=== PATIENT | female | born 1990 | race Caucasian/White ===

== ENCOUNTER 2016-09-19 16:43 | Emergency (ER) | payer OTHER ==
[~2016-09-19] VITALS: Ht 175.3 cm; Wt 59.0 kg
[2016-09-19 16:43] VITALS: BP_SYST 123
--- NOTE | 2016-09-19 16:50 | NUR ---
Pt to bed 4
[2016-09-19] MEDS ORDERED: METHOTREXATE IM ONE (17:00)
--- NOTE | 2016-09-19 17:00 | NUR ---
MD examining patient at bedside.Recieved new orders.
--- NOTE | 2016-09-19 17:10 | NUR ---
Patient BIB boyfriend, she is awake and alert x 4,cooperative with chief complaint of vaginal bleed since 08/2016. Patient states she has an ectopic . Patient denies pain and distress at this time.
[2016-09-19 17:28] LABS: BILIRUBIN,URINE NEGATIVE (NEGATIVE); BLOOD, URINE 2+ (NEGATIVE); CLARITY/URINE CLEAR (CLEAR); COLOR,URINE YELLOW (YELLOW); GLUCOSE,URINE NEGATIVE (NEGATIVE); KETONES,URINE NEGATIVE (NEGATIVE); LEUKOCYTE ESTERASE ,URINE NEGATIVE (NEGATIVE); NITRITE, URINE NEGATIVE (NEGATIVE); PROTEIN URINE NEGATIVE (NEGATIVE); UROBILINOGEN,URINE 0.2 (0.2-1.0)
[2016-09-19 17:33] LABS: BASOPHILS % (AUTO) 0.2 % (0.0-2.0); EOSINOPHILS # (AUTO) 0.1 K/uL (0.0-0.4); EOSINOPHILS % (AUTO) 1.7 % (0.0-4.0); HEMATOCRIT 38.8 % (36-48); HEMOGLOBIN 13.2 g/dL (12.0-16.0); LYMPHOCYTES # (AUTO) 1.5 K/uL (1.0-5.5); LYMPHOCYTES % (AUTO) 26.6 % (20.5-51.5); MEAN CORPUSCULAR HEMOGLOBIN 30 pg (27-31); MEAN CORPUSCULAR HGB CONC 34 % (32-36); MEAN CORPUSCULAR VOLUME 87 fL (79.0-98.0); MONOCYTES # (AUTO) 0.4 K/uL (0.0-1.0); MONOCYTES % (AUTO) 7.9 % (1.7-9.3); NEUTROPHILS # (AUTO) 3.5 K/uL (1.8-7.7); NEUTROPHILS % (AUTO) 63.6 % (40.0-70.0); PLATELET COUNT (AUTO) 252 K/uL (130-430); RED BLOOD CELL COUNT(AUTO) 4.48 MIL/uL (4.2-6.2); RED CELL DISTRIBUTION WIDTH 11.3 % (9.0-15.0); WHITE BLOOD COUNT (AUTO) 5.5 K/uL (4.8-10.8)
--- NOTE | 2016-09-19 17:35 | NUR ---
Pt medicated as ordered. Pt tolerated well.
[2016-09-19 17:39] LABS: CALCIUM 9.5 mg/dL (8.4-11.0); CREATININE 0.89 mg/dL (0.55-1.30); POTASSIUM 4.2 mmol/L (3.5-5.1)
[2016-09-19 17:46] LABS: PROTHROMBIN TIME 10.9 SECS (9.5-12.5)
[2016-09-19 18:06] LABS: ALBUMIN 4.5 g/dL (3.4-4.8); TOTAL BILIRUBIN 0.6 mg/dL (0.0-1.0); TOTAL PROTEIN, SERUM 7.6 g/dL (6.4-8.3)
[2016-09-19 18:07] LABS: BACTERIA,URINE FEW /HPF (None Seen); MUCUS,URINE 1+ /LPF (None Seen); WBC,URINE 0-3 /HPF (0-3)
--- NOTE | 2016-09-19 19:26 | NUR ---
Transfer of care Report given to BLAKE Burt. Endorsed plan of care to night nurse, BLAKE Burt.
[2016-09-19 19:30] VITALS: BP_SYST 120
--- NOTE | 2016-09-19 19:30 | NUR ---
Patient given written and verbal discharge instructions and verbalizes understanding. ER MD discussed with patient the results and treatment provided. Given copies of tests performed in ER. Patient in stable condition. ID arm band removed. No Rx of given. Patient educated on pain management and to follow up with PMD. Pain Scale 0/10. Opportunity for questions provided and answered.
== END 2016-09-19 19:30 | disposition home or self-care (01) ==
LOC: SED 16:43
DX: O00.90 Unspecified ectopic pregnancy without intrauterine pregnancy (principal)
CPT/HCPCS: 36415; 80053; 81000; 84702; 85025; 85610; 85730; 86886; 86900; 86901; 96372; 99284; J9260

== ENCOUNTER 2016-09-21 11:48 | Day surgery (SDC) | payer OTHER ==
[~2016-09-21] VITALS: Ht 175.3 cm; Wt 74.8 kg
[2016-09-21 12:35] LABS: BILIRUBIN,URINE NEGATIVE (NEGATIVE); BLOOD, URINE 3+ (NEGATIVE); CLARITY/URINE SL CLOUDY (CLEAR); COLOR,URINE YELLOW (YELLOW); GLUCOSE,URINE NEGATIVE (NEGATIVE); KETONES,URINE NEGATIVE (NEGATIVE); LEUKOCYTE ESTERASE ,URINE NEGATIVE (NEGATIVE); NITRITE, URINE NEGATIVE (NEGATIVE); PH,URINE 6.5 (5.0-8.0); PROTEIN URINE NEGATIVE (NEGATIVE); UROBILINOGEN,URINE 0.2 (0.2-1.0)
[2016-09-21 12:41] LABS: BASOPHILS % (AUTO) 0.3 % (0.0-2.0); EOSINOPHILS # (AUTO) 0.1 K/uL (0.0-0.4); EOSINOPHILS % (AUTO) 2.2 % (0.0-4.0); HEMATOCRIT 39.2 % (36-48); HEMOGLOBIN 13.6 g/dL (12.0-16.0); LYMPHOCYTES # (AUTO) 1.5 K/uL (1.0-5.5); MEAN CORPUSCULAR HEMOGLOBIN 30 pg (27-31); MEAN CORPUSCULAR HGB CONC 35 % (32-36); MEAN CORPUSCULAR VOLUME 86 fL (79.0-98.0); MONOCYTES # (AUTO) 0.5 K/uL (0.0-1.0); MONOCYTES % (AUTO) 8.6 % (1.7-9.3); NEUTROPHILS # (AUTO) 3.8 K/uL (1.8-7.7); NEUTROPHILS % (AUTO) 63.9 % (40.0-70.0); PLATELET COUNT (AUTO) 268 K/uL (130-430); RED BLOOD CELL COUNT(AUTO) 4.55 MIL/uL (4.2-6.2); RED CELL DISTRIBUTION WIDTH 11.4 % (9.0-15.0); WHITE BLOOD COUNT (AUTO) 5.9 K/uL (4.8-10.8)
[2016-09-21 12:46] LABS: BACTERIA,URINE RARE /HPF (None Seen); RBC,URINE >100 /HPF (0-3); WBC,URINE 0-3 /HPF (0-3)
[2016-09-21] MEDS ORDERED: PROPOFOL 200MG/ 20ML VIAL (DIPRIVAN) IV ONE (13:00)
[2016-09-21] MEDS ORDERED: MIDAZOLAM HCL 5 MG/5 ML VIAL IVP ONE (13:00)
[2016-09-21] MEDS ORDERED: fentaNYL CITRATE 250 MCG/5 ML AMP IV ONE (13:00)
[2016-09-21] MEDS ORDERED: ONDANSETRON HCL 4 MG/2 ML VIAL IVP ONE (13:00)
[2016-09-21] MEDS ORDERED: BUPIVACAINE /PF 0.5% 30 ML VIAL INJ ONE (13:00)
[2016-09-21] MEDS ORDERED: LR 1,000 ML IV.SOLN IV ONE (13:00)
[2016-09-21] MEDS ORDERED: GLYCOPYRROLATE 0.2 MG/ML VIAL IJ ONE (13:00)
[2016-09-21] MEDS ORDERED: SEVOFLURANE 15 MIN GAS INH ONE (13:00)
[2016-09-21] MEDS ORDERED: NS 1000 ML BAG IV ONE (13:00)
[2016-09-21] MEDS ORDERED: KETOROLAC TROMETHAMINE 30 MG VIAL IVP ONE (13:00)
[2016-09-21] MEDS ORDERED: ePHEDrine sulfate 50 MG/ML VIAL IV ONE (13:00)
[2016-09-21] MEDS ORDERED: ROCURONIUM BROMIDE 10 MG/ML (ZEMURON) IV ONE (13:00)
[2016-09-21] MEDS ORDERED: LR 1,000 ML IV SCH (14:05)
[2016-09-21] MEDS ORDERED: MORPHINE 2 MG/ML INJ. SYRINGE IVP PRN ×3 (14:15)
[2016-09-21] MEDS ORDERED: METOCLOPRAMIDE HCL 10 MG/2 ML VIAL IVP PRN (14:15)
[2016-09-21] MEDS ORDERED: OXYCODONE/ACETAMINOPHEN 5-325 TABLET PO PRN (14:30)
[2016-09-21] MEDS ORDERED: HYDROmorphone 2 MG TAB PO PRN (14:30)
[2016-09-21] MEDS ORDERED: ONDANSETRON HCL 4 MG/2 ML VIAL IVP PRN (14:30)
[2016-09-21 15:10] VITALS: BP_SYST 110
== END 2016-09-21 13:30 | disposition home or self-care (01) ==
LOC: SDS 11:48
PROVIDERS: ATTEND Obstetrics & Gynecology
DX: O00.10 Tubal pregnancy without intrauterine pregnancy (principal); Z87.891 Personal history of nicotine dependence
CPT/HCPCS: 36415; 59151; 81000; 85025; 86886; 86900; 86901; 88305; C1727; J1885; J2250; J2270; J2405; J2704; J2765; J3010; J3490 ×2; J7030; J7120